=== PATIENT | female | born 1995 | race Caucasian/White ===

== ENCOUNTER 2025-07-22 09:02 | Emergency (ER) | payer BC, SELFPAY ==
--- NOTE | ~2025-07-22 | CT_ITS ---
EXAMINATION: CT ABDOMEN AND PELVIS WITH CONTRAST CLINICAL INFORMATION: Abdominal pain. COMPARISON: None available. TECHNIQUE: Multidetector volumetric images were obtained from the superior aspect of the liver through the pubic symphysis following administration 85 mL of Omnipaque 350 intravenous contrast. Sagittal and coronal reformatted images were obtained on the technologist's workstation. Oral contrast: No This CT examination was performed using dose optimization techniques as appropriate, variously including the following: *Automated exposure control *Adjustment of mA and/or kV according to patient size (this includes techniques or standardized protocols for targeted exams where dose is matched to indication/reason for exam; i.e. extremities or head) *Use of iterative reconstruction technique FINDINGS: LUNG BASES: The visualized lung bases are unremarkable. LIVER, GALLBLADDER, AND BILIARY TREE: The liver is normal in size, shape, and attenuation. No focal hepatic lesion or biliary ductal dilatation is present. The gallbladder is unremarkable with no evidence of radiopaque gallstones, gallbladder wall thickening, or obvious pericholecystic inflammatory changes. PANCREAS: Unremarkable. SPLEEN: Unremarkable. ADRENAL GLANDS: Unremarkable. KIDNEYS AND URETERS: The kidneys are normal in size, shape, and attenuation. No hydronephrosis, hydroureter, or left calculi seen. There is a 2 mm nonobstructing calculus of the right kidney midpole. No perinephric stranding. BLADDER: Unremarkable. GASTROINTESTINAL TRACT: A normal appendix is visualized. The colon is normal in caliber and course, without wall thickening or inflammation. Small bowel is normal in caliber and course. The stomach, and duodenal sweep appear normal. ABDOMINAL WALL: No significant hernia is appreciated. LYMPH NODES: Normal. VASCULAR: Unremarkable. PELVIC VISCERA: The uterus and adnexa are unremarkable. OSSEOUS STRUCTURES: No suspicious lytic or blastic bone lesions. No acute findings. CT/CT abdomen pelvis w IV con IMPRESSION: 1. No acute findings in the abdomen or pelvis. Electronically signed by: Ajay Vergara MD 07/22/2025 11:39 AM EDT
[2025-07-22 09:18] VITALS: BP 130/74; PULSE 100; RESP 18; TEMP 36.6; O2SAT 99; BMI 32.2
[2025-07-22 09:44] LABS: MANUAL DIFF FLAG NO
[2025-07-22 09:45] LABS: Hematocrit 43.7 % (37.0-47.0); Hemoglobin 14.7 g/dl (12.0-16.0); Imm Gran Abs Auto 0.03 X10*3/uL (0.00-0.03); Imm Gran Pct Auto 0.4 % (0.0-0.4); Lymphocytes Absolute Auto 2.1 X10*3/uL (1.2-4.9); Mean Corpuscular HGB Conc 33.6 g/dl (31.0-35.0); Mean Corpuscular Hemoglobin 31.5 pg (27.0-33.0); Mean Corpuscular Volume 93.6 fL (80.0-98.0); NRBC Abs Auto 0.000 X10*3/uL (0.0-0.012); NRBC Pct Auto 0.0 /100WBC (0.0-0.2); Platelet Count 274 X10*3/uL (160-400); Red Blood Count 4.67 X10*6/uL (4.20-5.50); White Blood Count 8.4 X10*3/uL (4.8-10.8)
[2025-07-22 09:46] LABS: Appearance Urine Clear; Glucose Urine UA Negative (Negative); PH >= 9.0 (5.0-9.0); Specific Gravity - Urine 1.025 (1.005-1.025); UMIC TRIGGER UACC YES
[2025-07-22 09:49] LABS: UPreg QC Valid YES
[2025-07-22 09:58] LABS: Alanine Aminotransferase 23 U/L (0-31); Albumin Level 4.7 g/dL (3.5-5.0); Alkaline Phosphatase 56 U/L (39-117); Anion Gap 15 (12-20); Aspartate Amino Transferase 19 U/L (5-31); Blood Urea Nitrogen 7 mg/dL (9-16); Calcium 9.3 mg/dL (8.4-10.2); Carbon Dioxide 23 mmol/L (22-29); Chloride 108 mmol/L (96-108); Creatinine Clr Calc Pharmacy 119.0; Estimated Glomerular Filt Rate > 60; Lipase 12 U/L (8-78); Potassium 3.9 mmol/L (3.3-5.1); Sodium 142 mmol/L (135-145); Total Protein 7.8 g/dL (6.5-8.0)
--- NOTE | 2025-07-22 10:19 | ED_ITS ---
HPI - General Adult General Chief complaint: Nausea/Vomiting/Diarrhea Stated complaint: vomiting, sent from urgent care Time Seen by Provider: 07/22/25 10:19 Source: patient Mode of arrival: ambulatory Limitations: no limitations History of Present Illness ED Provider: Paola Turcios PA-C HPI narrative: Patient is a 29 year old assigned female at with no reported medical history presenting to the emergency department today with nausea and vomiting over 2 days. Patient states that over the last 2 days she has had nausea and vomiting for which she went to an urgent care and they recommended she come to the emergency department. Patient states that she was told by the urgent care she may have early diabetes because they saw glucose in her urine. Patient denies any other complaints at this time. Onset (ago): day(s) (2) Related Data Previous Rx's ?Medication ?Instructions ?Recorded methylphenidate HCl 10 mg tablet 10 mg PO BID 30 days #60 tabs 07/14/25 ondansetron 4 mg disintegrating 4 mg PO Q8H 3 days #9 tabs 07/22/25 tablet Allergies Allergy/AdvReac Type Severity Reaction Status Date / Time Penicillins (PCN) Allergy Unknown Verified 07/22/25 09:20 Review of Systems 2 Constitutional: Constitutional: Reports as per HPI Eyes: Eyes: Reports as per HPI ENT: Reports as per HPI Cardiovascular: Cardiovascular: Reports as per HPI Respiratory: Respiratory: Reports as per HPI Gastrointestinal: Gastrointestinal: Reports as per HPI Genitourinary: Genitourinary: Reports as per HPI Musculoskeletal: Musculoskeletal: Reports as per HPI Integumentary/Breasts: Skin/Breast: Reports as per HPI Neurologic: Reports as per HPI Psychiatric: Psychiatric: Reports as per HPI Endocrine: Endocrine: Reports as per HPI Hematologic/Lymphatic: Hematologic/Lymphatic: Reports as per HPI Allergic/Immunologic: Allergic/Immunologic: Reports as per HPI [facility] Past Medical History Attestation statement: The following information was validated with the patient. Source: old records reviewed and nursing notes reviewed Physical Exam ED Vital Signs: Vital Signs - 24 hr 07/22/25 09:18 07/22/25 11:24 07/22/25 12:31 Temperature 98 F 97.8 F 97.8 F Pulse Rate 100 92 92 Respiratory Rate 18 18 18 Blood Pressure 130/74 116/69 116/69 Pulse Oximetry 99 97 97 Oxygen Delivery Method Room Air Room Air Room Air BMI result Body Mass Index 32.2 Const General: cooperative, no acute distress, alert and awake Nutritional Appearance: well nourished Orientation/consciousness: patient oriented x3 HENMT Head: Yes normal to inspection and Yes atraumatic Ears: hearing grossly normal bilaterally and external ears normal General nose exam: Normal external nose present, no nasal discharge noted and no epistaxis Face and sinus: Yes normal facial exam, No abrasion and No laceration Mouth: Normal oral and palatal mucosa present, no drooling and no muffled voice Eyes General: appearance normal, both eyes and all related structures Periorbital: periorbital findings normal Eyelids: Yes eyelids normal Conjunctivae: conjunctivae normal Pupils: Equal, round and reactive pupils present EOM: EOMs intact bilaterally Neck Neck: Yes normal visual inspection and Yes full ROM Resp Effort & Inspection: normal respiratory effort and able to speak in complete sentences Neuro General: patient oriented x3, moves all extremities and CN's II-XI intact bilaterally Cranial nerves: Yes Equal, round and reactive pupils present Cognition (Neuro): normal cognition Extrem General: Yes normal to inspection, Yes full ROM and Yes capillary refill normal Psych Appearance: grossly normal Mental Status: mental status grossly normal Affect: normal affect Attitude: cooperative Thought process: Normal thought process present Thought content: Normal thought content present Insight: Good insight present (Psych) Medications Administered Discontinued Medications Generic Name Dose Route Start Last Admin Trade Name Freq PRN Reason Stop Dose Admin Sodium Chloride 1,000 mls @ 999 mls/hr 07/22/25 10:45 07/22/25 10:52 Ns IV 07/22/25 11:45 Not Given .Q1H1M MALORIE Iohexol 100 ml 07/22/25 11:27 07/22/25 11:27 Iohexol 350 Mg/Ml 100 Ml Infus..Btl IV 07/22/25 11:28 85 ml ONCE ONE Administration Medical Decision Making Medical Decision Making MDM Narrative: Patient is a 29 year old assigned female at with no reported medical history presenting to the emergency department today with nausea and vomiting over 2 days. Patient's physical exam was as noted in the physical exam portion of this note. Patient's blood work was unremarkable. Patient's urine showed trace lueks and 1+ bacteria however, there was blood present and it was a contaminated sample. Will await culture before initiating treatment. Patient's CT abd/pelvis showed no acute process. Patient's clinical presentation is most consistent with a viral illness. I explained my physical exam findings as well as all test results to the patient. I answered all questions asked by the patient. Patient received IV fluids while in the department. I stressed the importance of the patient taking her medication as directed (either prescribed or as the over the counter packaging recommends). I stressed the importance of the patient following up with her primary care provider. I stressed the importance of the patient returning to the emergency department immediately if her symptoms were to worsen or if she were to develop any dizziness, shortness of breath, difficulty breathing, chest pain, blurry vision, loss of vision, nausea, vomiting, abdominal pain, fever, chills, back pain, or any other complaints. Patient verbalized agreement and understanding with this treatment plan and discharge. Differential Diagnosis Differential Diagnoses: The differential diagnosis associated with the presentation includes Nausea Vomiting Gastroenteritis Viral illness Admission/Observation Consideration of admission/observation: Escalation of care including admission/observation considered Patient would have been admitted to the hospital had her work up had any findings where hospital admission was appropriate and her clinical presentation warranted hospital admission. Lab Data [facility] Lab Attestation statement: I reviewed the patient's lab results. My interpretation of these results are in the [facility] Rationale portion of this note. 07/22/25 09:39 07/22/25 09:39 Labs: Lab Results 07/22/25 07/22/25 Range/Units 09:35 09:39 WBC 8.4 (4.8-10.8) X10*3/uL RBC 4.67 (4.20-5.50) X10*6/uL Hgb 14.7 (12.0-16.0) g/dl Hct 43.7 (37.0-47.0) % MCV 93.6 (80.0-98.0) fL MCH 31.5 (27.0-33.0) pg MCHC 33.6 (31.0-35.0) g/dl RDW 11.5 (11.0-16.0) % Plt Count 274 (160-400) X10*3/uL MPV 10.1 (9.4-12.3) fL Immature Gran % (Auto) 0.4 (0.0-0.4) % Neut % (Auto) 68.0 (45-73) % Lymph % (Auto) 25.1 (20-40) % [place] % (Auto) 5.5 (2-11) % Eos % (Auto) 0.5 (0-4) % Baso % (Auto) 0.5 (0-2) % Lymph # (Auto) 2.1 (1.2-4.9) X10*3/uL [place] # (Auto) 0.5 (0.1-1.2) X10*3/uL Eos # (Auto) 0.0 (0.0-0.4) X10*3/uL Baso # (Auto) 0.0 (0.0-0.2) X10*3/uL Abs Immat Gran (auto) 0.03 (0.00-0.03) X10*3/uL Absolute Neuts (auto) 5.8 (2.0-8.3) x10*3/uL Absolute Nucleated RBC 0.000 (0.0-0.012) X10*3/uL Nucleated RBC % (auto) 0.0 (0.0-0.2) /100WBC Sodium 142 (135-145) mmol/L Potassium 3.9 (3.3-5.1) mmol/L Chloride 108 (96-108) mmol/L Carbon Dioxide 23 (22-29) mmol/L Anion Gap 15 (12-20) BUN 7 L (9-16) mg/dL Creatinine 0.63 (0.5-1.4) mg/dL Estim Creat Clear Calc 119.0 Estimated GFR > 60 Random Glucose 107 (60-115) mg/dL Estimat Average Glucose 103 mg/dL Hemoglobin A1c % 5.2 (<6.0) % Calcium 9.3 (8.4-10.2) mg/dL Total Bilirubin 0.5 (0.0-1.0) mg/dL Direct Bilirubin 0.2 (0.0-0.5) mg/dL AST 19 (5-31) U/L ALT 23 (0-31) U/L Alkaline Phosphatase 56 (39-117) U/L Total Protein 7.8 (6.5-8.0) g/dL Albumin 4.7 (3.5-5.0) g/dL Lipase 12 (8-78) U/L Beta-Hydroxybutyrate 0.45 H (0.02-0.27) mmol/L Urine Color Dark Yellow Urine Appearance Clear Urine pH >= 9.0 (5.0-9.0) Ur Specific [place] 1.025 (1.005-1.025) Urine Protein 30 (1+) H (Neg-Trace) mg/dL Urine Glucose (UA) Negative (Negative) mg/dL Urine Ketones 15 (Negative) mg/dL Urine Blood Trace H (Negative) Urine Nitrite Negative (Negative) Ur Leukocyte Esterase Trace H (Negative) Urine RBC 11-20 H (0-2) /HPF Urine WBC 0-5 (0-5) /HPF Ur Squamous Epith Cells 6-10 (0-2) /HPF Urine Bacteria 1+ (None Seen) Hyaline Casts 0-2 (0-2) /LPF Urine Test NEGATIVE (NEGATIVE) Independent Interpretation I performed an independent interpretation of an: CT Scan Interpretation: My interpretation is in agreement with the radiologist's impression of this imaging study. L Reason for Exam: abd pain EXAMINATION: CT ABDOMEN AND PELVIS WITH CONTRAST CLINICAL INFORMATION: Abdominal pain. COMPARISON: None available. TECHNIQUE: Multidetector volumetric images were obtained from the superior aspect of the liver through the pubic symphysis following administration 85 mL of Omnipaque 350 intravenous contrast. Sagittal and coronal reformatted images were obtained on the technologist's workstation. Oral contrast: No This CT examination was performed using dose optimization techniques as appropriate, variously including the following: *Automated exposure control *Adjustment of mA and/or kV according to patient size (this includes techniques or standardized protocols for targeted exams where dose is matched to indication/reason for exam; i.e. extremities or head) *Use of iterative reconstruction technique FINDINGS: LUNG BASES: The visualized lung bases are unremarkable. LIVER, GALLBLADDER, AND BILIARY TREE: The liver is normal in size, shape, and attenuation. No focal hepatic lesion or biliary ductal dilatation is present. The gallbladder is unremarkable with no evidence of radiopaque gallstones, gallbladder wall thickening, or obvious pericholecystic inflammatory changes. PANCREAS: Unremarkable. SPLEEN: Unremarkable. ADRENAL GLANDS: Unremarkable. KIDNEYS AND URETERS: The kidneys are normal in size, shape, and attenuation. No hydronephrosis, hydroureter, or left calculi seen. There is a 2 mm nonobstructing calculus of the right kidney midpole. No perinephric stranding. BLADDER: Unremarkable. GASTROINTESTINAL TRACT: A normal appendix is visualized. The colon is normal in caliber and course, without wall thickening or inflammation. Small bowel is normal in caliber and course. The stomach, and duodenal sweep appear normal. ABDOMINAL WALL: No significant hernia is appreciated. LYMPH NODES: Normal. VASCULAR: Unremarkable. PELVIC VISCERA: The uterus and adnexa are unremarkable. OSSEOUS STRUCTURES: No suspicious lytic or blastic bone lesions. No acute findings. CT/CT abdomen pelvis w IV con IMPRESSION: 1. No acute findings in the abdomen or pelvis. Electronically signed by: Ajay Vergara MD 07/22/2025 11:39 AM EDT RP Dictated By: Ajay Vergara MD Signed By: Electronically signed by Ajay Vergara MD 07/22/25 1139 Radiology Impression Discussion of test interpretation with radiology: I have reviewed the radiologist's reading. Discharge Plan Discharge Clinical Impression: Nausea & vomiting, Abdominal pain Patient Disposition: Home, Self-Care Instructions: Acute Nausea and Vomiting (DC), Abdominal Pain (ED) Additional Instructions: Your work up today was reassuring there is no EMERGENT cause for your symptoms. Your CT scan showed no evidence of any acute process. Your labs were unremarkable. Your urine showed evidence of a possible infection but the sample was contaminated - so we will await cultures before initiating treatment. IF you are prescribed home medications and/or you are taking over the counter medications at home - it is very important you continue to do so as prescribed / directed unless told otherwise. Follow up with your primary care provider. Return to the emergency department immediately if your symptoms worsen or if you develop any numbness, tingling, dizziness, shortness of breath, difficulty breathing, chest pain, blurry vision, loss of vision, nausea, vomiting, abdominal pain, fever, chills, back pain, or any other complaints. Please see the information below about our Patient Portal. If you are not yet enrolled in the [facility] Patient Portal, you will receive an enrollment email invitation following your visit to any [facility] [place] setting. You may also self-enroll in the Patient Portal by visiting our website: [email or web address] The following information is required to access the Patient Portal: - Your [facility] Medical Record Number - Your personal home email address (must match what is in your electronic medical record, Registration staff can assist with this) - Name - Date of Capabilities of the Patient Portal: - Message some providers - View upcoming appointments - Access your health summary, medical history, and visit history - View current conditions and allergies - View procedure and lab results - View your medications, including guidelines, side effects, and precautions - Complete pre-appointment questionnaires requested by your provider - Ready summary reports of your office visits and procedures To access the Patient Portal Mobile [place], follow these directions: - Search [facility] in the [place] Store or [employer] Store - Download the [place] - Search for [facility] - Enter your login/password Prescriptions: New ondansetron 4 mg tablet,disintegrating 4 mg PO Q8H 3 Days Qty: 9 0RF No Action methylphenidate HCl 10 mg tablet 10 mg PO BID 30 Days Qty: 60 0RF Rx Instructions: Partial Fill upon patient request. Referrals: Maria Luisa Fenton MD [Primary Care Provider, Internal Medicine] Stand Alone Forms: Work/School Release Interventions: ED Discharge Assessment Last Done: 07/22/25 12:31 Discharge Date/Time: 07/22/25 12:31 Print Language: Ivorian
[2025-07-22 11:24] VITALS: BP 116/69; PULSE 92; RESP 18; TEMP 36.6; O2SAT 97
[2025-07-22] MEDS: iohexoL 350 MG/ML 100 ML INFUS..BTL IV (11:27)
[2025-07-22 11:38] LABS: Hemoglobin A1C 120.4988 umol/L; Total Hemoglobin (HGBA1C) 3674.2653 umol/L
--- OUTSIDE RECORDS SUMMARY | 2025-07-22 11:56 | XMS_ITS | Clinical Summary ---
Author Organization [facility] [address] [facility] Address [address] [facility] [place] [address] Phone Care Team Providers Care Pourer Metal Name Role Phone Maria Luisa Fenton MD Primary Care Provider Allergies Active Allergy Reactions Criticality Noted Date Comments House Dust Wheezing 01/03/2017 Mold Swelling 01/03/2017 Medications loratadine (CLARITIN) 10 mg tablet Take 1 tablet (10 mg total) by mouth. Active methylphenidate (RITALIN) 10 mg tablet Take 1 tablet (10 mg total) by mouth. 4 Active albuterol HFA (PROAIR HFA ; PROVENTIL HFA ; VENTOLIN HFA) 90 mcg/actuation inhaler Inhale 2 puffs by mouth every 6 (six) hours if needed for wheezing. 8.5 g 1 5 Active norethindrone-e thinyl estradiol (JUNEL FE 10/28) 1 mg-20 mcg (21)/75 mg (7) per tablet Take 1 tablet by mouth 1 (one) time each day. 84 tablet 5 5 Active fluticasone propionate (FLONASE) 50 mcg/actuation nasal spray Administer 1 spray into each nostril 2 (two) times a day. 5 Active sertraline (ZOLOFT) 50 mg tablet Take 1 tablet (50 mg total) by mouth 1 (one) time each day. 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 (02/04/2025): Onset 11/24, gradual improvement, seen by distance education coordinator Dr Serna 03/24 due to mold Asthma 03/07/2006 Overview (02/04/2025): Allergic rhinitis Resolved Problems Problem Noted Date Diagnosed Date Resolved Date Allergic rhinitis due to ani mal hair and dander 10/21/2015 10/10/2024 Immunizations Immunization Administration Dates Next Due DTP 01/17/2001, 6,04/25/1996,01/31 DTaP (Infanrix) 6wks to less than 7yo 06/03/1997 [id number] (Pentacel) 2mo to less than 5yo 02/21/1997,06/27/1996,04/25/1996,01/31 HPV, Quadrivalent 01/07/2009,08/27/2008,06/26/20 08 Hepatitis B Pediatric (Enger ix B; Recombivax HB) to less than 20 yo 10/04/1996,02/01/1996,1995 IPV Inactivated polio (Ipol) 6wks and older 01/17/2001 Influenza Quadravalent, MDCK , 0.5ml, preservative free (Flucelvax) 6mo and older 10/10/2023 Influenza trivalent, with pr eservative (Fluzone; Afluria) 6mo and older 09/09/2013,09/05/2012,09/05/2011,08/30,08/27/2008 MMR, measles mumps and rubel la Live (Priorix; M-M-R II) 12mo and older 01/17/2001,02/21/1997 Meningococcal MCV4P 05/28/2014,06/26/2008 OPV 06/27/1996,04/25/1996,02/01/1996 Tdap Tetanus diptheria acell ular pertussis (Boostrix; Adacel) 7yo and older 04/07/2023,06/21/2007 Varicella live (Varivax) 12m o and older 12/12/1997,11/22/1996 Surgical History Surgery Date Site/Laterality Comments OTHER SURGICAL HISTORY I&D ABSCESS PERITONSILLAR; COMMENT: 2013 COLONOSCOPY 03/09/2023 Medical History Medical History Date Comments Concussion with no loss of consciousness 05/2009 : CT of head, facial bones and neck neg Allergic rhinitis 08/27/2008 Anxiety Family History Medical History Relation Name Comments Other: varicose veins Aunt maternal Asthma Brother x 2 opposition defi ance disorder No Known Problems Father unknown Other: cancer unknown type Maternal Grandfather Breast cancer Maternal Grandmother Asthma Mother ulcerative coli tis No Known Problems Paternal Grandfather unknown No Known Problems Paternal Grandmother unknown Relation Name Status Comments Aunt maternal Alive Brother x 2 Alive Father unknown Maternal Grandfather Maternal Grandmother Alive Mother Alive Paternal Grandfather unknown Paternal Grandmother unknown Social History Tobacco Use Types Packs/Day Years Used Date Smoking Tobacco: Never Smokeless Tobacco: Never Alcohol Use Standard Drinks/Week Comments Not Currently 0 (1 standard drink = 0.6 oz pur e alcohol) Housing Instability Answer Date Recorde d Are you worried that in the next 2 months you may not have stable housing? No 11/28/2024 Food Access & Nutrition Answer Date Rec orded Do you have access to a vari ety of food including fruits and vegetables? Yes 11/28/2024 Access to Healthcare Answer Date Record ed Within the last 3 months, ho w many times did you visit the emergency department for your medical care? 0 11/28/2024 Health Literacy Answer Date Recorded How often do you need to hav e someone help you when you read instructions, pamphlets, or other written material from your doctor or pharmacy? Never 11/28/2024 Caregiver: How often do you need to have someone help you when you read instructions, pamphlets, or other written material from your doctor or pharmacy? Not on file 11/28/2024 Financial Risk Answer Date Recorded How hard is it for you to pa y for the very basics like food, housing, medical care, and air conditioning / heating? Somewhat hard 11/28/2024 Transportation Answer Date Recorded Has the lack of transportati on kept you from meetings, work, or from getting things needed for daily living? No 02/20/202 5 Has the lack of transportati on kept you from medical appointments or from getting medications? No 11/28/2024 Social Isolation Answer Date Recorded How often do you feel lonely or isolated from th ose around you? Never 11/28/2024 Food Risk Answer Date Recorded Within the past 12 months we worried whether our food would run out before we got money to buy more. Never true 11/28/2024 Within the past 12 months th e food we bought just didn't last and we didn't have money to get more. Never true 11/28/2024 Dependent Care Answer Date Recorded Do you need help finding or paying for care for your loved ones. For example, child care teacher or elderly care for an older adult? No 11/28/2024 Education Answer Date Recorded Do you think completing more education or training, like finishing a GED, going to college, or learning a trade, would be helpful for you? No 11/28/2024 Employment and Income Answer Date Recor ded During the last four weeks, have you been actively looking for work? No 11/28/2024 Living Situation Answer Date Recorded What is your living situation? Unrecognized valu e 11/28/2024 Comments No Sex and Gender Information Value Date Recorded Sex Assigned at Not on file Legal Sex Female 8:50 PM EST Gender Identity Not on file Sexual Orientation Not on file Obstetrics History Para Term AB IAB SAB Ectopic Multiple Livin g Live Births 0 0 0 0 0 0 0 0 Last Filed Vital Signs Vital Sign Reading Time Taken Comments Blood Pressure 96/64 04/10/2025 7:54 AM EDT Pulse 53 04/10/2025 7:54 AM EDT Temperature 36.2 C (97.2 F) 04/10/2025 7:54 AM EDT Respiratory Rate 25 04/10/2025 7:54 AM EDT Oxygen Saturation 99% 04/10/2025 7:54 AM EDT Inhaled Oxygen Concentration - - Weight 67.6 kg (149 lb) 04/10/2025 7:54 AM EDT Height 151.1 cm (4' 11.5 ) 04/10/2025 7:54 AM ED T Body Mass Index 29.59 04/10/2025 7:54 AM EDT Plan of Treatment Upcoming Encounters Date Type Department Care Team (Late st Contact Info) Description 10/13/2025 8:15 AM EST Office Visit Adult Medicine [address] [phone] Maria Luisa Fenton MD [address] [place] [address] 12/24/2025 3:00 PM EDT Office Visit Adult Medicine [address] [phone] Maria Luisa Fenton MD [address] [place], [place] Health Maintenance Due Date Last Done Comments Pneumococcal Vaccine: Pediatrics (0 to 5 Years) and At-Risk Patients (6 to 49 Years) (1 of 2 - PCV) 2014 HIV Screening 09/17/2022 COVID-19 Vaccine ( season) 2025 01/19/2023, 08/23/2021, 02/04/2021, Additional history exists Influenza Vaccine (#1) 2025 , 09/09/2013, 09/05/2012, Additional history exists Social Influencers of Health Screening 11/28/2025 11/28/2024 Cervical Cancer Screening: Pap Smear 11/28/2027 11/28/2024, 04/03/2019, 04/03/2019 Cholesterol Screening (Lipid Panel) 04/10/2030 04/10/2025, 05/30/2020 DTaP,Tdap,and Td Vaccines (8 - Td or Tdap) 04/07/2033 04/07/2023, 06/21/2007, 01/17/2001, Additional history exists RSV Immunization Adult Patients (1 - 1-dose 75+ series) 2070 Hepatitis B Vaccines Completed 10/04/1996, 02/01/1996, 1995 HIB Vaccines Completed 02/21/1997, 06/09, 04/25/1996, Additional history exists Varicella Vaccines Completed 12/12/1997, 11/22/1996 IPV Vaccines Completed 01/17/2001, 02/06, 06/27/1996, Additional history exists MMR Vaccines Completed 01/17/2001, 02/21/1997 HPV Vaccines Completed 01/07/2009, 08/09, 06/26/2008 Meningococcal ACWY Vaccine Completed 05/28/2014, Depression Screening Completed 04/07/2025 Hepatitis C Screening Completed 04/10/2025 Hepatitis A Vaccines Aged Out No long er eligible based on patient's age to complete this topic Meningococcal B Vaccine Aged Out No l onger eligible based on patient's age to complete this topic RSV Immunization Patients Under 20 months Aged Out No longer eligible based on patient's age to complete this topic Procedures Procedure Name Priority Date/Time Associated Diagnosis Comments HEPATITIS C ANTIBODY Routine 04/10/2025 8:41 AM EDT Need for hepatitis C screening test LIPID PANEL WITH REFLEX TO DIRECT LDL Routine 04/10/2025 8:41 AM EDT Lipid screening PAP SMEAR Routine 11/28/2024 3:35 PM EST Encounter for annual routine gynecological examination from Last 3 Months or Most Recently Relevant to Health Maintenance Results * Hepatitis C antibody (04/10/2025 8:41 AM EDT) Pathologist [facility] Hepatitis C Antibody Negative Negative LAB CHEMISTRY METHOD 04/10/2025 12:34 PM EDT [facility] Blood Venous blood specimen / Unknown Venipuncture / Unknown 04/10/2025 8:41 AM EDT 04/10/2025 8:41 AM EDT us Lynn NAVARRETE LAB BLOOD ORDERABLES Final Re sult [facility] [address] [place] [address], * (ABNORMAL) Lipid panel with reflex to direct LDL (04/10/2025 8:41 AM EDT) Pathologist [facility] Cholesterol 180 0 - 200 mg/dL LAB CHEMISTRY METHOD 04/10/2025 11:20 AM EDT [facility] Triglycerides 75 0 - 150 mg/dL LAB CHEMISTRY METHOD 04/10/2025 11:20 AM EDT [facility] HDL 43 >=40 mg/dL LAB CHEMISTRY METHOD 04/10/2025 11:20 AM EDT [facility] LDL Calculated 122(H) 0 - 100 mg/dL LAB CHEMISTRY METHOD 04/10/2025 11:20 AM EDT [facility] VLDL Cholesterol Baron 15 mg/dL LAB CHEMISTRY METHOD 04/10/2025 11:20 AM EDT [facility] Non HDL Chol. (LDL+VLDL) 137 <145 mg/dL LAB CHEMISTRY METHOD 04/10/2025 11:20 AM EDT [facility] Chol/HDL Ratio 4.2 0.0 - 4.4 LAB CHEMISTRY METHOD 04/10/2025 11:20 AM EDT [facility] Blood Venous blood specimen / Unknown Venipuncture / Unknown 04/10/2025 8:41 AM EDT 04/10/2025 8:41 AM EDT Lynn NAVARRETE LAB BLOOD ORDERABLES Final Re sult [facility] [address] [place] [address], * Pap smear (11/28/2024 3:35 PM EST) Interpretation Negative for intraepithelial lesion or malignancy 12/04/2024 2:14 PM EST [facility] General Categorization Negative 12/04/2024 2:14 PM EST [facility] Other Findings Reactive cellular changes associated with inflammation 12/04/2024 2:14 PM EST [facility] Specimen Adequacy Satisfactory for evaluation, endocervical/parks sformation zone component present 12/04/2024 2:14 PM EST [facility] Pap Methodology Liquid Based Pap Test 12/04/2024 2:14 PM [facility] Disclaimer The Pap test is a screening test which carries an inherent false negative rate. These test results should be correlated with the patient's clinical findings and history. This Pap test was processed using an automated screening system. Technical cytopathology services provided by [facility], at [address] [place] [address] (CLIA # [id number]/Kevin Peñaloza MD, Hospice Community Liaison.) 12/04/2024 2:14 PM [facility] Console Pap Interpretation Reported 12/04/2024 2:14 PM [facility] Brushing/Spatula Cervix uteri structure / Unknown 11/28/2024 3:35 PM EST 11/28/2024 3:35 PM EST us Susana Davison [facility] CYTOLOGY ORDERABLES Final R esult [facility] [address] [place] [address], from Last 3 Months or Most Recently Relevant to Health Maintenance Insurance [facility] Care Teams Pourer Metal Relationship Specialty Start Date End Date Maria Luisa Fenton MD [address] [place] [address] PCP - General Internal Medicine 11/03/21
[2025-07-22 12:31] VITALS: BP 116/69; PULSE 92; RESP 18; TEMP 36.6; O2SAT 97
== END 2025-07-22 12:31 | disposition home or self-care (01) ==
PROVIDERS: Physician Assistant Medical; Emergency Provider Emergency Medicine; PCP Internal Medicine
DX: R11.2 Nausea with vomiting, unspecified (principal); R10.22 Pelvic and perineal pain left side; Z79.899 Other long term (current) drug therapy
CPT/HCPCS: 36415; 74177; 80048; 80076; 81001; 81025; 82010; 83036; 83690; 85025; 99283; 99285; Q9967

== ENCOUNTER → 2025-07-22 10:34 | Outpatient (BNV) | payer BC, SELFPAY | PROVIDERS: Emergency Provider Emergency Medicine; PCP Internal Medicine; Visit Provider Radiology Diagnostic Radiology | DX: R10.84 Generalized abdominal pain (principal); R11.10 Vomiting, unspecified | CPT/HCPCS: 74177 ==

== ENCOUNTER 2025-07-30 14:47 | Outpatient (AMB) | payer BC, SELFPAY ==
--- NOTE | 2025-07-30 15:12 | A.OFFVIS_ITS ---
Intake Visit Reasons: 6m Allergies Penicillins (PCN) Allergy (Verified 07/22/25 09:20) Unknown HPI Comments Details: 29-year-old RH woman with chronic tendency for excessive sleep and fatigue suggestive of Idiopathic Hypersomnia syndrome desipte sleeping 8-10 hours daily confirmed by her sleep diary. Her polysomnogram revealed a normal study and the MSLT after that revealed sleep latency of less than 5 minutes without any REM episode. She was doing okay. Methylphenidate helped a lot. She was more alert and energic with medication. She did not always have to take medication twice a day. She was able to get through the day. No medication side effects. Sleep at night was okay. [facility] Medical History (Updated 07/30/25 @ 15:15 by Gauri Hernandez CNP) Asthma Anxiety Review of Systems Const Denies chills, Denies daytime sleepiness, Denies difficulty sleeping, Denies fatigue, Denies fever(s), Denies frequent falls, Denies headache(s), Denies increased appetite, Denies poor appetite, Denies snoring, Denies weakness, Denies weight gain and Denies weight loss Eyes Denies loss of vision ENT Denies vertigo, Denies dizziness and Denies headache(s) Card Denies chest pain at rest, Denies chest pain with activity, Denies syncope, Denies leg edema and Denies palpitations Resp Denies snoring GI Denies constipation, Denies heartburn, Denies diarrhea and Denies nausea Denies urinary frequency, Denies urinary incontinence and Denies urinary urgency Musc Denies abnormal gait, Denies numbness and Denies tingling Skin/Breast Denies dry skin and Denies rash Neuro Denies abnormal gait, Denies vertigo, Denies dizziness, Denies syncope, Denies frequent falls, Denies headache(s), Denies lack of coordination, Denies loss of vision, Denies memory loss, Denies numbness, Denies restless legs, Denies seizure-like activity, Denies tingling, Denies paresthesias, Denies tremor(s) and Denies weakness Psych Denies anxiety, Denies depression, Denies auditory hallucinations, Denies memory loss, Denies visual hallucinations and Denies suicidal ideation Endo Denies fatigue and Denies palpitations Physical Exam Const Other: General Appearance:? normal, in no acute distress. Skin:? no rashes, no significant birthmarks. Heart:? S1, S2 normal, no murmurs. Lungs:? clear anteriorly and posteriorly. Extremities:? no edema. Psych:? alert, oriented, cognitive function intact, cooperative with exam. Neuro Other: Mental Status:?Normal attention, orientation, memory and affect.? Cranial Nerves:?Pupils are equal, round and reactive to light. External occular muscles are intact. Visual castillo are full. Face is symmetrical. Facial sensations are normal. Tongue is midline. Palate elevates symmetrically. Shoulder shrugging is normal. Hearing to bedside conversation is normal. Sensory Exam:?....? Coordination:?No ataxia,?no titubation.? Gait Exam: Within normal limits. Extrapyramidal System:?No tremor, rigidity with normal facial expressions.? Pronator Drift:?Not present.? Involuntary Movements:?No tremors seen.? Speech:?Normal.? Results Reviewed Results Reviewed: Sleep log in Dec 2023: 8-10 hrs of sleep a day PSG and MSLT at [facility] in February 2024: PSG was normal, MSLT revealed sleep latency <5min with no REM Assessment & Plan Assessment & Plan (1) Idiopathic hypersomnia with long sleep time: Code(s): G47.11 - Idiopathic hypersomnia with long sleep time Category: Medical Plan: Continue methylphenidate 10mg 1 tablet twice a day. Coding Level of Care Code Est Pt Level 3 (94318) Diagnoses Idiopathic hypersomnia with long sleep time G47.11
--- OUTSIDE RECORDS SUMMARY | 2025-07-30 20:57 | XMS_ITS | Clinical Summary ---
Author Organization [facility] [address] [facility] Address [address] [facility] [place] [address] Phone Care Team Providers Care Home Care Manager Rn Name Role Phone Maria Luisa Fenton MD Primary Care Provider [phone] Allergies Active Allergy Reactions Criticality Noted Date [...] (02/04/2025): Onset 11/24, gradual improvement, seen by veneer glue spreader Dr Serna 03/24 due to mold Asthma 03/07/2006 Overview (02/04/2025): Allergic rhinitis Resolved Problems Problem Noted Date Diagnosed Date Resolved Date Allergic rhinitis due to ani mal hair and dander 10/21/2015 10/10/2024 Immunizations Immunization Administration Dates Next Due DTP 01/17/2001, 6,04/25/1996,01/31 DTaP (Infanrix) 6wks to less than 7yo 06/03/1997 [id number] (Pentacel) 2mo to less than 5yo 02/21/1997,06/27/1996,04/25/1996,01/31 [...] care for your loved ones. For example, early childhood or elderly care for an older adult? [...] 8:15 AM EST Office Visit Adult Medicine [address] [phone] Maria Luisa Fenton MD [address] [place] [address] 12/24/2025 3:00 PM EDT Office Visit Adult Medicine [address] [phone] Maria Luisa Fenton MD [address] [place], [place] Health Maintenance Due Date Last Done [...] C antibody (04/10/2025 8:41 AM EDT) Pathologist [facility] Hepatitis C Antibody Negative Negative LAB CHEMISTRY METHOD 04/10/2025 12:34 PM EDT [facility] Blood Venous blood specimen / Unknown Venipuncture / Unknown 04/10/2025 8:41 AM EDT 04/10/2025 8:41 AM EDT us Lynn NAVARRETE LAB BLOOD ORDERABLES Final Re sult [facility] [address] [place] [address], * (ABNORMAL) Lipid panel with reflex to direct LDL (04/10/2025 8:41 AM EDT) Pathologist [facility] Cholesterol 180 0 - 200 mg/dL LAB CHEMISTRY METHOD 04/10/2025 11:20 AM EDT [facility] Triglycerides 75 0 - 150 mg/dL LAB CHEMISTRY METHOD 04/10/2025 11:20 AM EDT [facility] HDL 43 >=40 mg/dL LAB CHEMISTRY METHOD 04/10/2025 11:20 AM EDT [facility] LDL Calculated 122(H) 0 - 100 mg/dL LAB CHEMISTRY METHOD 04/10/2025 11:20 AM EDT [facility] VLDL Cholesterol Baron 15 mg/dL LAB CHEMISTRY METHOD 04/10/2025 11:20 AM EDT [facility] Non HDL Chol. (LDL+VLDL) 137 <145 mg/dL LAB CHEMISTRY METHOD 04/10/2025 11:20 AM EDT [facility] Chol/HDL Ratio 4.2 0.0 - 4.4 LAB CHEMISTRY METHOD 04/10/2025 11:20 AM EDT [facility] Blood Venous blood specimen / Unknown Venipuncture / Unknown 04/10/2025 8:41 AM EDT 04/10/2025 8:41 AM EDT Lynn NAVARRETE LAB BLOOD ORDERABLES Final Re sult [facility] [address] [place] [address], * Pap smear (11/28/2024 3:35 PM EST) Interpretation Negative for intraepithelial lesion or malignancy 12/04/2024 2:14 PM EST [facility] General Categorization Negative 12/04/2024 2:14 PM EST [facility] Other Findings Reactive cellular changes associated with inflammation 12/04/2024 2:14 PM EST [facility] Specimen Adequacy Satisfactory for evaluation, endocervical/parks sformation zone component present 12/04/2024 2:14 PM EST [facility] Pap Methodology Liquid Based Pap Test 12/04/2024 2:14 PM [facility] Disclaimer The Pap test is a screening test which carries an inherent false negative rate. These test results should be correlated with the patient's clinical findings and history. This Pap test was processed using an automated screening system. Technical cytopathology services provided by [facility], at [address] [place] [address] (CLIA # [id number]/Kevin Peñaloza MD, Harbor Department Manager.) 12/04/2024 2:14 PM [facility] Console Pap Interpretation Reported 12/04/2024 2:14 PM [facility] Brushing/Spatula Cervix uteri structure / Unknown 11/28/2024 3:35 PM EST 11/28/2024 3:35 PM EST us Susana Davison [facility] CYTOLOGY ORDERABLES Final R esult [facility] [address] [place] [address], from Last 3 Months or Most Recently Relevant to Health Maintenance Insurance [facility] Care Teams Home Care Manager Rn Relationship Specialty Start Date End Date Maria Luisa Fenton MD [address] [place] [address] PCP - General Internal Medicine 11/03/21
== END 2025-07-30 15:24 | disposition home or self-care (01) ==
LOC: HO.HSM 14:47
PROVIDERS: PCP Internal Medicine; Referring Provider Internal Medicine; Visit Provider Registered Nurse
DX: G47.11 Idiopathic hypersomnia with long sleep time (principal)
CPT/HCPCS: 99213